=== PATIENT | female | born 1970 | race Two or more races ===

== ENCOUNTER → 2024-12-16 | Outpatient (CLI) | payer BC ==
[~2024-12-16] MED LIST: ALBUTEROL SULF 2.5 MG/0.5ML(0.5%) NEB SOLN ONE
== END | disposition home or self-care (01) ==
LOC: RT 09:11
PROVIDERS: ATTEND Internal Medicine Pulmonary Disease
DX: R05.9 Cough, unspecified (principal)
CPT/HCPCS: 94060; 94727; 94729